=== PATIENT | male | born 1955 | race Caucasian/White ===

== ENCOUNTER → 2021-01-26 06:32 | Outpatient (CLI) | payer OTHER, SELFPAY ==
--- NOTE | 2021-01-26 06:35 | MRI_ITS ---
STUDY: MRI RIGHT KNEE REASON FOR EXAM: Right medial knee pain for 2 months, possible twisting injury. TECHNIQUE: Standardized fat and water weighted pulse sequences were obtained in all 3 orthogonal planes. COMPARISON: Radiographs 01/16/2021. FINDINGS: There is a complex tear of the posterior horn of the medial meniscus (proton-density sagittal images 30-36). There is peripheral subluxation of the medial meniscus. Normal hyaline cartilage of the medial femorotibial compartment. There is mild subchondral bone edema of the medial tibial plateau (T2 coronal images 10-13), a stress phenomenon. Normal medial collateral ligamentous complex (MCL). Normal distal semimembranosus, gracilis and semitendinosus tendons. Normal lateral meniscus. Normal hyaline cartilage of the lateral femorotibial compartment. Normal lateral femoral condyle and tibial plateau. Normal proximal tibiofibular articulation. Normal lateral collateral (fibular) ligament. Normal popliteus tendon. Normal biceps femoris tendon. Normal anterior cruciate ligament (ACL). Normal posterior cruciate ligament (PCL). Normal congruent patellofemoral articulation. Normal hyaline cartilage of the patellofemoral compartment. Normal medial and lateral patellar retinaculum. Normal visualized quadriceps tendon. There is an ossification in the patellar tendon (proton-density sagittal images 18-21). Normal Hoffa''s fat pad. There is a small joint effusion. There is a popliteal cyst measuring approximately 6 cm in length (T2 sagittal images 16-21). The otherwise visualized osseous structures are unremarkable. MRI/Lower Ext Joint Only (Routine) IMPRESSION: Medial meniscal tear. Mild subchondral bone edema of the medial tibial plateau, a stress phenomenon. 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 Small joint effusion. Popliteal cyst. Electronically Signed: Akil Groves MD at 8:23 EDT Tel , Service support ,
== END ==
PROVIDERS: PCP Family Medicine; Referring Provider Physician Assistant; Visit Provider Physician Assistant
DX: M23.91 Unspecified internal derangement of right knee (principal); M25.561 Pain in right knee
CPT/HCPCS: 73721

== ENCOUNTER 2021-02-14 11:07 | Day surgery (SDC) | payer OTHER, SELFPAY ==
[2021-02-14] VITALS (9 sets, daily range): BP systolic 121–156; BP diastolic 71–88; PULSE 65–85; RESP 16–18; TEMP 36.6–37; O2SAT 95–97; BMI 23.2
[2021-02-14] MEDS: Lactated Ringers 1,000 ML 100 ML IV ×2 (12:00→13:22)
[2021-02-14] MEDS: Cefazolin 2 GM in 0.9% Normal Saline 100 ML IV (12:14)
--- NOTE | 2021-02-14 12:16 | HP.PCM_ITS ---
History and Physical Date of Admission: 02/14/21 Date of Service: 02/01/21 MR#:[id number]: DANIA ROSERep #:[id number]:[id number] Provider: TRINY Clemons/Sex: 66/M [facility] [place] Int[place] Intake Visit Reasons: RIGHT KNEE Chief Complaint: Rt Knee Pain Allergies No Known Allergies Allergy (Verified 02/01/21 08:39) Medications multivitamin 1 tab PO DAILY 02/01/21 [History Confirmed 02/01/21] [facility] Medical History (Updated 02/02/21 @ 15:47 by Bronson AGOSTO, TRINY) Internal derangement of right knee Strain of right knee Social History Smoking Status: Never smoker alcohol intake: current alcohol intake frequency: 0-2 drinks per day Alcohol type: beer HPI RIGHT KNEE Details: Parts of this documentation were recorded by a scribe, this documentation accurately reflects the service provided and the decisions made by Bronson beavers PA 02/01/21 0830. DANIA ROSE is a 66 year old M here today for his MRI follow up. Patient had a right knee MRI on: 01/26/2021. Patient is continuing to wear his brace. Patient is now experiencing popping with his right knee. Reports stiffness. Denies any numbness, tingling and associating s/s at this time. Patient voiced he is now having the same pain with his left knee. Pain is located: anterior medial. Denies any popping, clicking and snapping. Denies any numbness, tingling and associating s/s at this time. Patient states he takes ibuprofen prn pain. Patient has been using ice packs frequently. Ortho Exam Right Knee Skin/Wound: No erythema, No ecchymosis and No swelling Contralateral Normal: Yes Homans Sign: No Examination: Yes Med jt line tenderness, Yes Pain with flexion, No Pain with extention and Yes Vianney's Test Stability: NML: Anterior Drawer KNEE: No acute abnormalities on inspection today. Continues to have some pain with flexion as well as continued reproducible medial joint line tenderness. Coding Level of Care Code Off vis,est,level 2 Diagnoses Internal derangement of right knee M23.91 Tear of medial meniscus of right knee S83.241A Assessment and Plan Assessment and Plan (1) Internal derangement of right knee: Status: Acute Plan - RTINY Torres: Patient resents the office today to review his MRI of the right knee. Patient does continue to have pain in the medial joint line and actually states that the pains have actually progressed and he has had more mechanical symptoms primarily giving out/instability. Physical exam today continues show medial joint line tenderness. His MRI images and impression were discussed with patient as well as his daughter who was on a face time. At this time we did discuss treatment options which include doing nothing, conservative care with an injection and physical therapy versus proceeding with arthroscopy for partial meniscectomy with possible chondroplasty. We did also explained that he does have underlying arthritis and therefore with arthroscopy and meniscectomy that he still could have some underlying issues due to the arthritis depending on the extent once we see that arthroscopically. We did discuss anatomy, physiology, as well as pathophysiology of this type of injury. We also discussed the procedure to repair and/or remove part of the meniscus. At this time after all questions were answered patient states he really would like to proceed with surgical intervention as he has not had again good relief or experience with injections and feels he would like to have this fixed. Risks and benefits of surgery including blood clots, blood loss, infection, neurovascular injuries, failure of procedure, loss of limb/loss of life from anesthesia were discussed and consent was signed in office today. Patient was given antimicrobial soap to use nightly. 3 nights before the surgery and the morning of surgery. Patient can contact our office and notify if he has any questions in the meantime. This note was generated with [employer] software. It may contain incorrect words, spelling, and punctuation that were not noted in checking the note before signing. (2) Tear of medial meniscus of right knee: Status: Acute 02/02/21 1550<Electronically signed by Bronson AGOSTO>Date Bronson AGOSTO Cosigner Signature:Date I have re-examined the patient. There are no clinical changes since date of exam
[2021-02-14] MEDS: Cefazolin 1 GM/50 ML BAG IV (12:17)
[2021-02-14] MEDS: Epinephrine (1 mg/ml) 1 MG/ML VIAL (12:34)
[2021-02-14] MEDS: Bupivacaine 0.5% PF 10 ML VIAL (12:45)
[2021-02-14] MEDS: MethylPREDNISolone Acetate 40 MG/ML Vial IM (12:45)
[2021-02-14] MEDS: Lidocaine 1% /Epi 1:100 (20ml) 20 ML Vial (12:45)
--- NOTE | 2021-02-14 12:51 | PCM.OPRPT ---
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 Risk benefits and alternatives of the procedure were reviewed including risk of bleeding infection nerve artery tissue damage need for further surgery continued pain and expected postoperative course. Procedure: The patient was met in the preoperative holding area. The operative extremity was identified by both patient and physician and family and marked. Patient was brought back to the operating room on a wheeled cart and transferred to the operating table in the supine position. Anesthesia was started. A well-padded tourniquet was placed on the operative extremity. A lower extremity leg ortiz was secured to the operative extremity. The contralateral extremity was well-padded and the end of the bed was flexed to 90 degrees. The patient was prepped and draped in the usual sterile fashion. A timeout was called to ensure the proper patient, procedure, and extremity were being contemplated. 0.5% Marcaine with epinephrine was injected into the planned incisional areas under the skin only. An Esmarch was used to exsanguinate the extremity and the tourniquet was inflated. An 11 blade scalpel was used to make a stab incision in the anterior lateral portal. The arthroscope was inserted into the intercondylar notch and inflow and outflow tubes were attached. Arthroscopic visualization began. The medial compartment was entered. An 18-gauge spinal needle was used to establish the placement for anterior medial portal. An 11 blade scalpel was used to make a stab incision. Blunt probe was inserted followed by a meniscal probe. Complex tear of the posterior horn and body of the medial meniscus was evaluated with use of arthroscopic arthroscopic biting instruments shaver and ArthroCare wand partial medial meniscectomy was performed the ACL was found to be mostly intact there was partial tearing of the posterior bundle which was debrided there was noted to be grade I-II chondromalacia of the medial compartment and patellofemoral compartment there was no loose cartilage flaps that required chondroplasty. The lateral compartment was entered free of meniscal or cartilage pathology The arthroscope was switched to the medial portal to complete the procedure. The medial and lateral gutters were inspected and were free of loose bodies. The patellofemoral joint was inspected grade 1 2 chondromalacia of the patellar apex. There was good patellar tracking. The knee was thoroughly irrigated and drained. An intra-articular injection with 5 cc 0.5% Marcaine plain and 40 mg of Depo-Medrol was injected intra-articularly. The arthroscope was removed the portals were closed with 3-0 nylon arthroscopic stitches. Followed by Xeroform 4 x 4's ABDs web roll and an Kamran wrap. The tourniquet was let down and the drapes were removed. All counts were correct. The patient was brought back to the PACU in stable condition.
--- NOTE | 2021-02-14 12:55 | EX.PCM.DISCH ---
Discharge Instructions Dressing / Incision Additional Dressing/Incision Instructions:: Ice and elevate next 72 hours .keep dressing on clean and dry for 48 hours then may remove begin showering daily but do not submerge in tub or pool. After shower may apply Band-Aids . Encourage knee range of motion weightbearing as tolerated, use crutches until confident in knee then may discontinue. No strenuous activity. When not ambulating keep iced and elevated next 72 hours. Do not mix pain medication with recreational drugs or alcohol only take as prescribed can be addictive and abusive, call with any questions or concerns. Follow Up Care Please Follow Up With: Chaz Reyes DO When: 2 weeks Test Results: Test results from this visit will be discussed in further detail at your follow-up appointment, if applicable. Discharge Plan Admission Attending Provider: Chaz Reyes Primary Care Provider: Familia Dumont Discharge Orders/Prescriptions Prescriptions: New oxycodone 5 mg tablet 5 - 10 mg PO Q4H PRN (Reason: pain) 5 Days Qty: 30 RF: 0 No Action multivitamin [Multiple Vitamins] Tablet 1 tab PO DAILY RF: 0 Referrals / Follow Up: Familia Dumont MD [Primary Care Provider] - Disposition Disposition (needs filled in before D/C Order can be placed): Home, Self Care
== END 2021-02-14 15:16 | disposition home or self-care (01) ==
LOC: SDC 11:08 → AC 11:09
PROVIDERS: PCP Family Medicine; Referring Provider Orthopaedic Surgery; Visit Provider Orthopaedic Surgery
PROC: (CPT 29870; principal; 2021-02-14 12:25)
DX: S83.231A Complex tear of medial meniscus, current injury, right knee, initial encounter (principal); S83.511A Sprain of anterior cruciate ligament of right knee, initial encounter; X58.XXXA Exposure to other specified factors, initial encounter; Y93.9 Activity, unspecified; Y92.79 Other farm location as the place of occurrence of the external cause; Y99.9 Unspecified external cause status; M23.91 Unspecified internal derangement of right knee; M17.11 Unilateral primary osteoarthritis, right knee; M94.261 Chondromalacia, right knee
CPT/HCPCS: 01400; 29881; J7120; J2405

== ENCOUNTER → 2021-12-05 | Outpatient (CLI) | payer OTHER, SELFPAY ==
[2021-12-05 16:11] LABS: Cholesterol 178 mg/dL (200); EST Glomerular Filtration Rate 104 mL/min (>60); Est Glom Filt Rate - Afr Amer 125 mL/min (>60); High Density Lipoprotein 84 mg/dL; PSA,Total - Annual Screen 0.59 ng/mL (0.00-4.00)
== END | disposition home or self-care (01) ==
LOC: MFPLAB 11:34
PROVIDERS: PCP Family Medicine; Referring Provider Family Medicine; Visit Provider Family Medicine
DX: Z00.00 Encounter for general adult medical examination without abnormal findings (principal)
CPT/HCPCS: 36415; 82465; 82565; 83718; 84153; G0103

== ENCOUNTER → 2022-05-24 | Outpatient (CLI) | payer MEDICARE, SELFPAY ==
--- NOTE | 2022-05-24 12:51 | RAD_ITS ---
STUDY: X-RAY CHEST REASON FOR EXAM: Male, 67 years old. BRONCHITIS TECHNIQUE: Frontal and lateral views of the chest. COMPARISON: None. FINDINGS: Old fracture left clavicle. Lungs are hyperaerated. The lungs are clear and expanded. There is no demonstrated pleural abnormality. Normal size heart. Normal mediastinum and woodrow. Normal visualized pulmonary arteries. Normal visualized aortic arch and descending thoracic aorta. Normal visualized thoracic spine. Normal visualized ribs, clavicles, and shoulders. There is no demonstrated abnormality of the visualized soft tissue structures of the upper abdomen. RAD/Chest PA and Lateral IMPRESSION: COPD. No acute disease. Electronically Signed: Zeferino Peralta MD at 23:13 EST ,
== END | disposition home or self-care (01) ==
PROVIDERS: PCP Family Medicine; Referring Provider Family Medicine; Visit Provider Family Medicine
DX: J20.9 Acute bronchitis, unspecified (principal)
CPT/HCPCS: 71046

== ENCOUNTER → 2025-03-25 | Outpatient (CLI) | payer MEDICARE, SELFPAY ==
--- NOTE | 2025-03-25 15:23 | RAD_ITS ---
PROCEDURE: TIBIA FIBULA 2 VIEWS 03/25/2025 REASON FOR EXAM: PAIN FOR ONE YEAR TECHNIQUE: Procedure Code: RADTF Modality: DX Procedure: TIBIA FIBULA 2 VIEWS Laterality: Left RAD/Tibia & Fibula 2 Views IMPRESSION: No acute fracture or dislocations. No significant degenerative changes. No acute soft tissue abnormalities. No radiographic foreign body. Reading Location: [id number]
[2025-03-25 18:46] LABS: AST(SGOT) 26 U/L (<=37); Alanine Aminotransfer ALT/SGPT 24 U/L (<=46); Albumin, Serum 4.3 g/dL (3.4-4.8); Alkaline Phosphatase 69 U/L (40-129); Anion Gap 11 (5-15); BUN 16 mg/dL (4-19); BUN/Creat Ratio 18.2 RATIO (10-20); CPK Total, Creatine Kinase 252 U/L (24-195); Calcium,Total 9.2 mg/dL (7.6-11.0); Carbon Dioxide 24.0 mmol/L (21.0-32.0); Chloride 106 mmol/L (98-108); Ferritin 170 ng/mL (37-417); Globulin 2.7 g/dL (2.2-4.2); Glucose 96 mg/dL (70-99); Magnesium 2.5 mg/dL (1.5-2.2); Potassium 4.5 mmol/L (3.3-5.1)
== END | disposition home or self-care (01) ==
LOC: MTLAB 15:21
PROVIDERS: PCP Family Medicine; Referring Provider Family Medicine; Visit Provider Family Medicine
DX: M79.662 Pain in left lower leg (principal); R25.2 Cramp and spasm
CPT/HCPCS: 36415; 73590; 80053; 82550; 82728; 83735

== ENCOUNTER → 2025-05-07 | Outpatient (CLI) | payer MEDICARE, SELFPAY ==
[2025-05-07 10:20] LABS: Hematocrit 47.0 % (40-54); Hemoglobin 15.2 g/dL (13.0-16.5); Immature Granulocytes Count 0.020 X10^3/uL (0.0-0.0); Mean Corp Hgb Conc 32.3 g/dL (32-36); Mean Corpuscular Volume 90.9 fL (80-94); Mean Platelet Vol. 9.9 fl (6.2-12.0); NRBC Flagged by Analyzer 0 % (0-5); Platelet Count 300 K/mm3 (150-450); RBC Distribution Width CV 13.3 % (11.6-14.6); RBC Distribution Width SD 45.0 fl (35.1-43.9); Red Blood Count 5.17 M/mm3 (4.6-6.2); White Blood Count 4.6 K/mm3 (4.4-11.0)
[2025-05-07 10:56] LABS: AST(SGOT) 20 U/L (<=37); Alanine Aminotransfer ALT/SGPT 22 U/L (<=46); Albumin, Serum 4.3 g/dL (3.4-4.8); Alkaline Phosphatase 59 U/L (40-129); Anion Gap 8 (5-15); BUN 11 mg/dL (4-19); BUN/Creat Ratio 13.0 RATIO (10-20); Calcium,Total 9.6 mg/dL (7.6-11.0); Carbon Dioxide 28.2 mmol/L (21.0-32.0); Chloride 104 mmol/L (98-108); Cholesterol 216 mg/dL (<=200); Globulin 2.7 g/dL (2.2-4.2); Glucose 91 mg/dL (70-99); Low Density Lipoprotein Calc. 92 mg/dL; PSA,Total - Annual Screen 0.60 ng/mL (0.02-4.00); Potassium 4.5 mmol/L (3.3-5.1); Triglycerides 106 mg/dL; Very Low Density Lipoprotein 21 mg/dL (5-40); cholesterol:hdl ratio screen 2.04
== END | disposition home or self-care (01) ==
PROVIDERS: PCP Family Medicine; Referring Provider Family Medicine; Visit Provider Family Medicine
DX: Z00.00 Encounter for general adult medical examination without abnormal findings (principal); Z12.5 Encounter for screening for malignant neoplasm of prostate
CPT/HCPCS: 36415; 80053; 80061; 84153; 85025; G0103